=== PATIENT | male | born 1955 | race Caucasian/White ===

== ENCOUNTER 2018-08-15 21:11 | Observation (INO) ==
[2018-08-15] MEDS ORDERED: Ketorolac 15 MG/ML VIAL IVP ONE (21:39)
--- NOTE | 2018-08-15 21:44 | Emergency Department Note ---
Disposition Clinical Impression: RLQ abdominal pain Disposition: Admitted As Inpatient Condition: Good Time of Disposition: 00:06 Abdominal Pain HPI - General Chief Complaint: ED Abdominal Pain Stated Complaint: abd pain/nausea Time Seen by Provider: 08/15/18 21:23 Source: patient Mode of arrival: ambulatory Limitations: no limitations Nursing Notes Reviewed: Yes Vital Signs Reviewed: Yes - History of Present Illness HPI Narrative: 62-year-old male otherwise healthy presents emergency department with abdominal pain. Approximately 8 hours prior to arrival patient reports feeling pain around the belly button. Describes as a ache that has now gradually moved to the right lower quadrant. No prior history of this. Some nausea. He has not taken anything for the pain. Gradually worsened. He ate some left over food prior to the onset of the pain. Denies any vomiting. Denies any chest pain or shortness of breath. No recent illness cough or congestion. Denies any urinary symptoms. History of prostate cancer with resection and radiation 8 years ago with completion 4 years ago. 4 years ago he also had a penile implant in denies any new issues. Denies any injury or trauma to the area. No other abdominal surgeries. Pt Subjective Complaint: abdominal pain - Related Data Allergies Allergy/AdvReac Type Severity Reaction Status Date / Time No Known Allergies Allergy Verified 08/15/18 22:13 All systems ED: reviewed and negative except as stated. Review of Systems: As Per HPI Constitutional: Denies: fever, chills ENT ED: Denies: congestion Cardiovascular: Denies: chest pain Respiratory: Denies: cough, dyspnea Gastrointestinal: Reports: abdominal pain, nausea. Denies: vomiting, diarrhea, melena, hematochezia Genitourinary: Denies: urgency, dysuria Musculoskeletal: Denies: back pain Integumentary: Denies: rash, abrasion Neurological: Denies: headache Abdominal Pain PMH - Past Medical History Medical history: Reports: no medical history Physical Exam - General Limitations: no limitations General appearance: alert, in distress (Appears uncomfortable) - Head Head exam: atraumatic, normocephalic, normal inspection - Eye Eye exam: Present: normal appearance, PERRL, EOMI. Absent: scleral icterus - ENT ENT exam: normal exam, normal oropharynx, mucous membranes moist - Neck Neck exam: Present: normal inspection, full ROM, trachea midline - Chest Chest inspection: Present: normal inspection, symmetric chest wall rise - Respiratory Respiratory exam: Present: normal lung sounds bilaterally - Cardiovascular Cardiovascular exam: Present: regular rate, normal rhythm, normal heart sounds - Abdominal Exam Abdominal exam: Present: soft, tenderness, normal bowel sounds, Rovsing's sign, tenderness at McBurney's Point. Absent: distention, guarding, rebound, rigidity , trauma, obturator sign Abdominal tenderness: Present: RLQ - Male exam: Present: other (penile implant). Absent: testicular tenderness - Extremities Exam Extremities exam: Present: normal inspection, full ROM, normal capillary refill. Absent: tenderness, pedal edema - Back Exam Back exam: Present: normal inspection, full ROM. Absent: tenderness, CVA tenderness (R), CVA tenderness (L) - Neurological Exam Neurological exam: Present: alert, oriented X3 - Psychiatric Psychiatric exam: Present: normal affect, normal mood - Skin Skin exam: Present: warm, dry, intact, normal color. Absent: rash, cyanosis, diaphoresis Course Course Narrative: Patient presents with right lower quadrant pain concerning for appendicitis. He has positive McBurney point. Will obtain labs images and toward all for pain at this time. - Reevaluation(s) Reevaluation #1: I personally reviewed the images which showed a dilated appendix but the radiologic interpretation was not definitive for acute appendicitis and possible early appendicitis. After additional pain medication patient feels more comfortable however on examination she continues to have pain and tenderness in the right lower quadrant. Will consult with her surgeon for possible serial examination versus surgery. Patients in agreement with this plan. - Consultations Consultation #1: Consulted with on-call surgeon Dr. Minaya regarding the patient's presentation and findings. The CT scan showed a dilated appendix concerning for acute appendicitis. Patient's pain did improve with medication however he continues to be tender in the right lower quadrant. Review of his labs did not show a leukocytosis it was 10.7. Patient is also afebrile. Dr. Minaya recommended discharge home with pain medication and follow-up in the morning. I did reiterate that patient had a clinical suspicion for acute appendicitis it was still recommended for him to be discharged home. Time: 23:35 Consultation #2: Discussed with the patient and will plan for admission and serial abdominal examinations. We consult with a surgeon who will see the patient on the floor in the morning. Will initiate empiric antibiotics Cipro and Flagyl. Spoke with on-call hospitalist kecia Natarajan to admit for abdominal pain concerning for appy with serial abdominal examinations. No further orders at this time Vital Signs Temperature 98.7 F 08/15/18 21:14 Pulse Rate 94 08/15/18 21:14 Respiratory Rate 20 08/15/18 21:14 Blood Pressure 112/68 08/15/18 21:14 O2 Sat by Pulse Oximetry 98 08/15/18 21:14 Temperature 98.7 F 08/15/18 22:13 Pulse Rate 77 08/15/18 23:49 Respiratory Rate 14 08/15/18 23:49 Blood Pressure 125/69 08/15/18 23:49 O2 Sat by Pulse Oximetry 98 08/15/18 23:49 Oxygen Delivery Oxygen Delivery Room Air Abdominal Pain - MDM Narrative Medical decision making narrative: Patient was discussed with my attending physician who agrees with ED management and final disposition. They independently evaluated the patient. Please refer to their attestation to this encounter for additional information. This note was generated by [employer] voice recognition software and as a result grammatical or spelling errors may occur using this program. - Medical Records Medical records reviewed: Yes I reviewed the patient's medical records. - Lab Data Lab results reviewed: Yes I reviewed the patient's lab results. Result diagrams: 08/15/18 21:53 08/15/18 21:53 Lab Results 08/15/18 08/15/18 08/15/18 Range/Units 21:53 21:53 22:04 WBC 10.7 (4.3-11.1) K/mcL RBC 3.53 L (4.19-5.50) M/mcL Hgb 12.9 (12.9-16.9) g/dL Hct 34.9 L (37.5-50.1) % MCV 98.9 (83.0-100.0) fL MCH 36.5 H (28.0-33.3) pg MCHC 37.0 H (31.6-35.5) g/dL RDW 13.0 (11.5-14.5) % Plt Count 193 (140-400) K/mcL MPV 9.2 L (9.4-12.4) fL Immature Gran % 0.4 (0-4) % Seg Neutrophils % 88.8 % Lymphocytes % 4.4 % Monocytes % 5.9 % Eosinophils % 0.0 % Basophils % 0.5 % Neutrophils # 9.5 H (1.6-8.9) K/mcL Lymphocytes # 0.5 L (0.6-4.6) K/mcL Monocytes # 0.6 (0.0-1.3) K/mcL Eosinophils # 0.0 (0.0-0.6) K/mcL Basophils # 0.1 (0.0-0.2) K/mcL Sodium 131 L (136-145) mEq/L Potassium 3.8 (3.5-5.1) mEq/L Chloride 98 (98-107) mEq/L Carbon Dioxide 23 (23-29) mEq/L BUN 11 (8-23) mg/dL Creatinine 0.61 L (0.70-1.30) mg/dL Est GFR ( Amer) > 60 (> 60) Est GFR (Non-Af Amer) > 60 (> 60) BUN/Creatinine Ratio 18 (6-26) Glucose 114 H (70-105) mg/dL Calculated Osmolality 272 L (280-300) Calcium 9.1 (8.6-10.3) mg/dL Total Bilirubin 0.9 (0.3-1.0) mg/dL Direct Bilirubin 0.2 (0.0-0.2) mg/dL Indirect Bilirubin 0.7 (0.0-1.2) mg/dL AST 23 (13-39) Units/L ALT 16 (7-52) Units/L Alkaline Phosphatase 32 L (34-104) Units/L Serum Total Protein 6.5 (6.4-8.9) g/dL Albumin 4.5 (3.5-5.7) g/dL Globulin 2.0 L (2.4-3.5) g/dL Albumin/Globulin Ratio 2.3 H (1.1-2.2) Lipase 4 L (11-82) Units/L Urine Color Dark Yellow (Yellow) Urine Clarity Cloudy A (Clear) Urine pH 5.5 (5.0-8.0) pH Units Ur Specific [place] 1.015 (1.010-1.025) Urine Protein Negative (Neg-Trace) mg/dL Urine Glucose (UA) Normal (Normal) mg/dL Urine Ketones 15 H (Negative) mg/dL Urine Blood Negative (Negative) Urine Nitrite Negative (Negative) Urine Bilirubin Small H (Negative) Urine Urobilinogen Normal (Normal) mg/dL Ur Leukocyte Esterase Negative (Negative) Urine Microscopic RBC 0-3 (0-3) per hpf Urine Microscopic WBC 0-3 (0-3) per hpf Ur Squamous Epith Cells Many H (None-Few) per lpf Calcium Oxalate Crystal Present Urine Bacteria None Seen (None-Few) per hpf Hyaline Casts None Seen (None-Few) per lpf Ur Culture Indicated? NO (NO) - Radiology Data Radiology results reviewed: Yes I reviewed the patient's radiology results. Abdomen/Pelvis CT 08/15/18 21:30 IMPRESSION: Dilated tubular fluid-filled appendix with simple attenuation identified. Minimal regional inflammation. Differential considerations would include acute appendicitis, an appendiceal mucocele or mucinous cystadenoma. D/ / 08/15/2018 22:58:00 Adolph Bae / bethany Interpreting Provider: Adolph Bae
[2018-08-15 22:11] LABS: Basophils # 0.1 K/mcL (0.0-0.2); Basophils % 0.5 %; Hematocrit 34.9 % (37.5-50.1); Hemoglobin 12.9 g/dL (12.9-16.9); Immature Granulocytes % 0.4 % (0-4); Lymphocytes # 0.5 K/mcL (0.6-4.6); Lymphocytes % 4.4 %; Mean Corpuscular Hemoglobin 36.5 pg (28.0-33.3); Mean Corpuscular Volume 98.9 fL (83.0-100.0); Mean Platelet Volume 9.2 fL (9.4-12.4); Monocytes # 0.6 K/mcL (0.0-1.3); Monocytes % 5.9 %; Neutrophils # 9.5 K/mcL (1.6-8.9); Platelet Count 193 K/mcL (140-400); Red Blood Count 3.53 M/mcL (4.19-5.50); Segmented Neutrophils % 88.8 %
[2018-08-15 22:25] LABS: Alanine Aminotransferase 16 Units/L (7-52); Albumin 4.5 g/dL (3.5-5.7); Albumin/Globulin Ratio 2.3 (1.1-2.2); Alkaline Phosphatase 32 Units/L (34-104); Aspartate Amino Transferase 23 Units/L (13-39); BUN/Creatinine Ratio 18 (6-26); Bilirubin,Direct 0.2 mg/dL (0.0-0.2); Bilirubin,Indirect 0.7 mg/dL (0.0-1.2); Bilirubin,Total 0.9 mg/dL (0.3-1.0); Blood Urea Nitrogen 11 mg/dL (8-23); Calcium 9.1 mg/dL (8.6-10.3); Carbon Dioxide 23 mEq/L (23-29); Chloride 98 mEq/L (98-107); Glucose 114 mg/dL (70-105); Lipase 4 Units/L (11-82); Osmolality,Calculated 272 (280-300); Potassium 3.8 mEq/L (3.5-5.1); Sodium 131 mEq/L (136-145); Total Protein 6.5 g/dL (6.4-8.9); eGFR For Non-African Americans > 60 (> 60)
[2018-08-15] MEDS ORDERED: *HR* FentaNYL (PF) 100 MCG/2 ML VIAL IVP ONE (22:25)
[2018-08-15 22:53] LABS: Bilirubin,Urine Small (Negative); Blood,Urine Negative (Negative); Clarity,Urine Cloudy (Clear); Color,Urine Dark Yellow (Yellow); Glucose,Urine (UA) Normal (Normal); Ketones,Urine 15 mg/dL (Negative); Leukocyte Esterase,Urine Negative (Negative); Nitrite,Urine Negative (Negative); PH,Urine 5.5 pH Units (5.0-8.0); Protein,Urine Negative (Neg-Trace); Specific Gravity,Urine 1.015 (1.010-1.025); Urobilinogen,Urine Normal (Normal)
[2018-08-15 22:56] LABS: Bacteria,Urine None Seen per hpf (None-Few); Hyaline Casts,Urine None Seen per lpf (None-Few); RBC,Urine 0-3 per hpf (0-3); Squamous Epithelial Cell,Urine Many per lpf (None-Few); WBC,Urine 0-3 per hpf (0-3)
[2018-08-15 23:10] LABS: Calcium Oxalate Crystals,Urine Present
--- NOTE | 2018-08-15 23:30 | Emergency Department Note ---
Disposition Clinical Impression: RLQ abdominal pain Disposition: Still a Patient Referrals: Chon Muller [Other] Forms: ED Satisfaction Letter, Work/School Release General Adult HPI - General Chief complaint: ED Abdominal Pain Stated complaint: abd pain/nausea Time Seen by Provider: 08/15/18 21:23 Source: patient Mode of arrival: ambulatory Limitations: no limitations - History of Present Illness Pain Scale: 8 - Related Data Allergies Allergy/AdvReac Type Severity Reaction Status Date / Time No Known Allergies Allergy Verified 08/15/18 22:13 Constitutional: Denies: fever, chills ENT ED: Denies: congestion Cardiovascular: Denies: chest pain Respiratory: Denies: cough, dyspnea Gastrointestinal: Reports: abdominal pain, nausea. Denies: vomiting, diarrhea, melena, hematochezia Genitourinary: Denies: urgency, dysuria Musculoskeletal: Denies: back pain Integumentary: Denies: rash, abrasion Neurological: Denies: headache Past Medical History - Past Medical History Medical history: Reports: cancer Psychiatric history: Reports: no psych history - Social History Smoking Status: Never smoker Alcohol use: Reports: occasionally Drug use: Reports: none Physical Exam - General Limitations: no limitations General appearance: alert, in distress Course - Consultations Consultation #1: re-discussed case with Dr. Minaya and re-iterated my concerns for acute appendicitis and the clinical presentation concerning for appendicitis. Zonia pain is controlled currently but is concerned that he may not be able to control the pain at home. I have discussed that we will not be able to send zonia peterson and that he can evalaute zonia at bedside, admit him to surgical service, or we can at the least admit to medicine with his consult for RLQ pain for serial abdominal exams. Dr. Minaya would like patient admitted to medicine with consutl to his service. Time: 00:08 Vital Signs Temperature 98.7 F 08/15/18 21:14 Pulse Rate 94 08/15/18 21:14 Respiratory Rate 20 08/15/18 21:14 Blood Pressure 112/68 08/15/18 21:14 O2 Sat by Pulse Oximetry 98 08/15/18 21:14 Temperature 98.7 F 08/15/18 22:13 Pulse Rate 77 08/15/18 23:49 Respiratory Rate 14 08/15/18 23:49 Blood Pressure 125/69 08/15/18 23:49 O2 Sat by Pulse Oximetry 98 08/15/18 23:49 Oxygen Delivery Oxygen Delivery Room Air Medical Decision Making - Lab Data Result diagrams: 08/15/18 21:53 08/15/18 21:53 Lab Results 08/15/18 08/15/18 08/15/18 Range/Units 21:53 21:53 22:04 WBC 10.7 (4.3-11.1) K/mcL RBC 3.53 L (4.19-5.50) M/mcL Hgb 12.9 (12.9-16.9) g/dL Hct 34.9 L (37.5-50.1) % MCV 98.9 (83.0-100.0) fL MCH 36.5 H (28.0-33.3) pg MCHC 37.0 H (31.6-35.5) g/dL RDW 13.0 (11.5-14.5) % Plt Count 193 (140-400) K/mcL MPV 9.2 L (9.4-12.4) fL Immature Gran % 0.4 (0-4) % Seg Neutrophils % 88.8 % Lymphocytes % 4.4 % Monocytes % 5.9 % Eosinophils % 0.0 % Basophils % 0.5 % Neutrophils # 9.5 H (1.6-8.9) K/mcL Lymphocytes # 0.5 L (0.6-4.6) K/mcL Monocytes # 0.6 (0.0-1.3) K/mcL Eosinophils # 0.0 (0.0-0.6) K/mcL Basophils # 0.1 (0.0-0.2) K/mcL Sodium 131 L (136-145) mEq/L Potassium 3.8 (3.5-5.1) mEq/L Chloride 98 (98-107) mEq/L Carbon Dioxide 23 (23-29) mEq/L BUN 11 (8-23) mg/dL Creatinine 0.61 L (0.70-1.30) mg/dL Est GFR ( Amer) > 60 (> 60) Est GFR (Non-Af Amer) > 60 (> 60) BUN/Creatinine Ratio 18 (6-26) Glucose 114 H (70-105) mg/dL Calculated Osmolality 272 L (280-300) Calcium 9.1 (8.6-10.3) mg/dL Total Bilirubin 0.9 (0.3-1.0) mg/dL Direct Bilirubin 0.2 (0.0-0.2) mg/dL Indirect Bilirubin 0.7 (0.0-1.2) mg/dL AST 23 (13-39) Units/L ALT 16 (7-52) Units/L Alkaline Phosphatase 32 L (34-104) Units/L Serum Total Protein 6.5 (6.4-8.9) g/dL Albumin 4.5 (3.5-5.7) g/dL Globulin 2.0 L (2.4-3.5) g/dL Albumin/Globulin Ratio 2.3 H (1.1-2.2) Lipase 4 L (11-82) Units/L Urine Color Dark Yellow (Yellow) Urine Clarity Cloudy A (Clear) Urine pH 5.5 (5.0-8.0) pH Units Ur Specific [place] 1.015 (1.010-1.025) Urine Protein Negative (Neg-Trace) mg/dL Urine Glucose (UA) Normal (Normal) mg/dL Urine Ketones 15 H (Negative) mg/dL Urine Blood Negative (Negative) Urine Nitrite Negative (Negative) Urine Bilirubin Small H (Negative) Urine Urobilinogen Normal (Normal) mg/dL Ur Leukocyte Esterase Negative (Negative) Urine Microscopic RBC 0-3 (0-3) per hpf Urine Microscopic WBC 0-3 (0-3) per hpf Ur Squamous Epith Cells Many H (None-Few) per lpf Calcium Oxalate Crystal Present Urine Bacteria None Seen (None-Few) per hpf Hyaline Casts None Seen (None-Few) per lpf Ur Culture Indicated? NO (NO) Attestation Statement - Attestation Attestation: I examined this patient and my medical decision-making was reviewed with the Resident Physician. I agree with the documented findings, disposition and treatment plan as described except to the extent set forth below. 62 year old male presents to the ED with complaints of RLQ pain that started in the umbilical area and is now radiating into the RLQ with positive McBurneys point. Patient states that he is concerned for appendicitis and has no previous history of abdoinal surgeries. He also is experincing decreased and suppressed appetite and nausea with vomitting or fever. ABCT is concerning for early appendicitis and we will consult with wayne. Patient pain controlled with fentanyl.
[2018-08-16] MEDS ORDERED: 0.9 % Sodium Chloride 1,000 ML IVC SCH (00:15)
[2018-08-16] MEDS ORDERED: *HR* FentaNYL (PF) 100 MCG/2 ML VIAL IVP ONE ×2 (00:42→01:46)
[2018-08-16] MEDS ORDERED: MetroNIDAZOLE 500 MG/100 ML 500 MG/100 ML BAG IVPB ONE (01:01)
[2018-08-16] MEDS ORDERED: Ketorolac 15 MG/ML VIAL IVP PRN (02:39)
[2018-08-16] MEDS ORDERED: Naloxone 0.4 MG/ML INJ IVP PRN (02:39)
[2018-08-16] MEDS ORDERED: *HR* FentaNYL (PF) 100 MCG/2 ML VIAL IVP PRN (02:39)
[2018-08-16] MEDS ORDERED: 0.9 % Sodium Chloride w KCl 20 MEQ/1,000 ML MLS IVC SCH (02:45)
--- NOTE | 2018-08-16 03:01 | Internal Med History&Physical ---
Date of Encounter: 08/16/18 Time of Encounter: 02:30 Internal Medicine - H&P: HPI Chief complaint: abdominal pain Admitted From: Emergency Dept Plans for Post Hospital Care: Home History of present illness: Mr. Epps is a 62 year old male who presents to the ER tonight with gradual onset right lower quadrant abdominal pain at about 1 PM on 08/15/2018. Symptoms started as a dull achy pain that over the next hour progressed to significant pain, causing him to double over. He therefore came to ER where he was seen and evaluated. CT imaging was obtained which was concerning for possible appendicitis. His labs are unremarkable and he had no fevers. Phone consultation was made with general surgery who recommended discharge with close follow-up versus admission to hospitalist service and surgical consultation. Patient was therefore admitted to hospitalist service with a surgery consultation. Upon my assessment of the patient in the ER, he reiterates the above history. I spoke with Dr. Dotson about this patient regarding clinical concerns of possible appendicitis. Presently, his pain is well controlled, and he does not have a surgical abdomen on exam. I discussed with him the plan including IV fluids, pain control, nothing by mouth status, and surgical consultation. Additionally, I requested patient be started on antibiotics in the ER to cover GI arabella. We will request surgical consultation from Dr. Minaya, and I informed patient he will need serial abdominal exams throughout the day. I also informed him that if his pain becomes unbearable and/or more intense, I requested to be notified by him and/or his nurse. Patient voiced understanding and agreement with my plan. He denies any fevers, nausea, vomiting, chills, or diarrhea. His main and only complaint was the right lower quadrant abdominal pain which he first noticed around 1 PM yesterday. His pain is much better controlled now and he is resting in bed comfortably. He denies any dysuria, hematuria, flank pain, or urinary urgency. Past Med Surg Social Fam HX - Past Medical History Attestation: Yes The following information was validated with the patient. Source: patient Medical history: no medical history Additional medical history: prostate cancer Psychiatric history: no psych history - Past Surgical History Additional surgical history: prostate cancer, prostatectomy - Social History Smoking Status: Never smoker Alcohol use: occasionally Drug use: none Current living situation: Home, With Family Activity Level: Independent ambulation, Very active Recent Out of Country Travel Within the Last 8 Weeks: No - Family History Mother Living Status: Hx Family GI Disorders: No Father Living Status: Hx Family GI Disorders: No Hx Family Genitourinary Disorders: Yes (prostate cancer) Internal Medicine - H&P: Meds 3 Allergy/AdvReac Type Severity Reaction Status Date / Time No Known Allergies Allergy Verified 08/15/18 22:13 - Constitutional Constitutional: no chills, no fever(s), no night sweats - EENT Eyes: no blurry vision, no change in vision Ears: no ear pain, no tinnitus Nose, mouth and throat: no nasal congestion, no sore throat - Cardiovascular Cardiovascular ROS IM: no chest pain, no dyspnea, no dyspnea on exertion - Respiratory Respiratory: no cough, no chest congestion, no excessive phlegm production - Gastrointestinal Gastrointestinal: abdominal pain (suprapubic to RLQ), no diarrhea, no hematemesis, no hematochezia, no melena, no nausea, no vomiting - Genitourinary Genitourinary ROS male: no dysuria, no flank pain, no hematuria - Musculoskeletal Musculoskeletal ROS IM: no arthralgias, no back pain - Integumentary Integumentary IM: no rash, no jaundice - Neurological Neurological ROS: no dizziness, no focal weakness, no frequent falls, no headache(s) - Psychiatric Psychiatric: no anxiety, no depression - Endocrine Endocrine IM: no polydipsia, no polyuria - Allergic/Immunologic Allergic/Immunologic: no GI upset with certain foods - Constitutional Vitals: Temp Pulse Resp BP Pulse Ox 98.4 F 78 16 132/80 97 08/16/18 02:48 08/16/18 02:48 08/16/18 02:48 08/16/18 02:48 08/16/18 02:48 General appearance: Present: cooperative, A&O X 3, pleasant, no acute distress, answers questions appropriately Exam: comfortable, resting in bed, no distress at this time - Head Head exam: Present: normal inspection - Eye Eye exam: Present: EOMI, PERRL. Absent: scleral icterus Pupils: Present: normal accommodation - ENT ENT exam: Present: mucous membranes dry, normal exam, normal oropharynx - Neck Neck exam general surgery: Present: full ROM, supple. Absent: tenderness, nuchal rigidity, thyromegaly - Respiratory Respiratory exam: Present: CTAB. Absent: rales, respiratory distress, rhonchi, tachypnea - Cardiovascular Cardiovascular exam: Present: RRR, +S1, +S2. Absent: diastolic murmur, systolic murmur - GI/Abdominal GI/Abdominal exam: Present: normal bowel sounds, soft, tenderness (RLQ), no peritoneal signs. Absent: distended, guarding, hepatomegaly, mass, rebound - Extremities Exam Extremities exam: Present: full ROM, warm, radial pulses palpable and symmetrical. Absent: calf tenderness, joint swelling, pedal edema, tenderness - Back Exam Back exam: Absent: CVA tenderness (L), CVA tenderness (R) - Neurological Exam Neurological exam: Present: alert, CN II-XII intact, oriented X3, no focal deficits - Psychiatric Psychiatric exam: Present: normal affect, normal mood - Skin Skin exam: Present: dry, intact, warm Internal Med - H&P Results - Labs CBC & Chem 7: 08/15/18 21:53 08/15/18 21:53 Labs: U/A reviewed -- does not indicate UTI - Diagnostic Studies CT scan - abdomen Additional comments: Report reviewed -- possible appendicitis, appendiceal muocele, or mucinous cystadenoma - Assessment and plan (1) RLQ abdominal pain Current Visit: Yes Status: Acute Assessment and plan: 1. Will keep npo, consult surgery (Dr. Minaya), treat with IV Fentanyl and/or Toradol for pain, and hydrate with IVF. 2. Blood cultures done in ER per my request. 3. IV Flagyl and Cipro to cover GI arabella. 4. Serial abdominal exams. (2) DVT prophylaxis Current Visit: Yes Status: Acute Assessment and plan: 1. Heparin SQ.
[2018-08-16] MEDS ORDERED: Ondansetron 4 MG/2 ML VIAL IVP PRN (03:28)
--- NOTE | 2018-08-16 03:51 | Event Note ---
Date of Encounter: 08/16/18 Time of Encounter: 03:15 Called by RN regarding worsening abdominal pain upon arrival from ER and after transitioning to hospital bed from ER bed/cot. I came by to assess patient. He is having some more pain and some nausea. He has no guarding or rebound tenderness but he is wincing in pain with percussion of abdomen. I ordered an extra dose of Fentanyl and PRN Zofran. I then called and spoke with Dr. Minaya informing him of the above and requesting that he see him first thing this morning upon arrival to hospital as I'm concerned he'll likely need surgery. He agreed with me and will see him first thing this morning.
[2018-08-16] MEDS ORDERED: *HR* Heparin 5,000 UNIT/ML VIAL SQ SCH (06:00)
--- NOTE | 2018-08-16 06:16 | Anesthesia Evaluation PreOp ---
Date of Encounter: 08/16/18 Time of Encounter: 06:14 - Past History Planned Operation: lap appy Cardiac History: Denies any Significant Hx Pulmonary History: Denies Any Significant HX HOT WORT SETTLER History: Denies Any Significant HX Other Medical History: Other (prostate ca) Anesthesia History: No Prior Anesthetic Complications, Past Anesthesia ( prostactectomy) Alcohol Use: occasionally Drug use: none Medications and Allergies 3 Allergy/AdvReac Type Severity Reaction Status Date / Time No Known Allergies Allergy Verified 08/15/18 22:13 - Meds/Allergy Pre-op Review Medications Reviewed: Yes Allergies Reviewed: Yes Beta Blockers on Current Med List: No Anesthesia Results - Labs 08/16/18 06:08 08/16/18 06:08 - Imaging EKG: report reviewed (NSR) Anesthesia Exam Vital Signs/O2 Sat, Most Current Temp Pulse Resp BP Pulse Ox 98.4 F 78 16 132/80 97 08/16/18 02:48 08/16/18 02:48 08/16/18 02:48 08/16/18 02:48 08/16/18 02:48 Weight: 74kg - HEENT Pupil (Motor): Pupils equal, EOMI Mallampati: II Teeth: Normal Oral Opening: Greater than 3 - HOT WORT SETTLER LOC: Oriented HOT WORT SETTLER Motor: Normal RUE, Normal LUE, Normal RLE, Normal LLE, Normal Face HOT WORT SETTLER Sensory: Normal: RUE, LUE, RLE, LLE, Face - Cardiac Rhythm: Regular - Pulmonary Breath Sounds: bilateral Clear Respiratory Effort: Symmetrical Anesthesia Assess/Plan ASA Score: 2 Modified Israel Scale for Level of Consciousness: Cooperative, oriented, and tranquil Anesthetic Plan: General Monitoring Plan: Standard Monitors Recovery Plan: PACU
[2018-08-16 06:19] LABS: Basophils % 0.2 %; Hemoglobin 12.5 g/dL (12.9-16.9); Immature Granulocytes % 0.2 % (0-4); Lymphocytes # 0.3 K/mcL (0.6-4.6); Lymphocytes % 3.2 %; Mean Corpuscular HGB Conc 36.8 g/dL (31.6-35.5); Mean Corpuscular Hemoglobin 36.8 pg (28.0-33.3); Mean Platelet Volume 9.2 fL (9.4-12.4); Monocytes # 0.5 K/mcL (0.0-1.3); Neutrophils # 7.8 K/mcL (1.6-8.9); Platelet Count 165 K/mcL (140-400); Red Cell Distribution Width 12.8 % (11.5-14.5); Segmented Neutrophils % 90.4 %
[2018-08-16] MEDS ORDERED: Lidocaine -MPF 2% 2 ML VIAL ONE (06:20)
[2018-08-16] MEDS ORDERED: *HR* FentaNYL (PF) 100 MCG/2 ML VIAL ONE (06:20)
[2018-08-16] MEDS ORDERED: *HR* Succinylcholine 200 MG/10 ML VIAL IVP ONE (06:20)
[2018-08-16] MEDS ORDERED: *HR* Rocuronium Bromide 50 MG/5 ML VIAL ONE (06:20)
[2018-08-16] MEDS ORDERED: *HR* Propofol 200 MG/20 ML VIAL IVP ONE (06:20)
[2018-08-16] MEDS ORDERED: Lidocaine -MPF 4% 5 ML AMPUL ONE (06:26)
[2018-08-16 06:27] LABS: Activated Partial Thrombo Time 27.6 Seconds (26.0-36.0)
[2018-08-16 06:46] LABS: Alanine Aminotransferase 14 Units/L (7-52); Albumin 4.2 g/dL (3.5-5.7); Albumin/Globulin Ratio 2.3 (1.1-2.2); Alkaline Phosphatase 32 Units/L (34-104); Aspartate Amino Transferase 19 Units/L (13-39); BUN/Creatinine Ratio 18 (6-26); Bilirubin,Total 0.9 mg/dL (0.3-1.0); Blood Urea Nitrogen 10 mg/dL (8-23); Calcium 8.6 mg/dL (8.6-10.3); Carbon Dioxide 21 mEq/L (23-29); Chloride 98 mEq/L (98-107); Globulin 1.8 g/dL (2.4-3.5); Glucose 130 mg/dL (70-105); Magnesium 1.8 mg/dL (1.6-2.6); Osmolality,Calculated 271 (280-300); Potassium 4.4 mEq/L (3.5-5.1); Sodium 130 mEq/L (136-145); eGFR For Non-African Americans > 60 (> 60)
[2018-08-16] MEDS ORDERED: Neostigmine Methylsulfate 3 MG/3 ML SYRINGE ONE (07:24)
[2018-08-16] MEDS ORDERED: *HR* OxyCODONE Immed Rel 5 MG TABLET PO PRN (07:43)
[2018-08-16] MEDS ORDERED: *HR* Promethazine 25 MG/ML VIAL IVP PRN (07:43)
[2018-08-16] MEDS ORDERED: *HR* Labetalol 20 MG/4 ML SYRINGE IVP PRN (07:43)
[2018-08-16] MEDS ORDERED: MetroNIDAZOLE 500 MG/100 ML 500 MG/100 ML BAG IVPB SCH (08:00)
--- NOTE | 2018-08-16 08:13 | Anesthesia Evaluation Post Op ---
Date of Encounter: 08/16/18 Time of Encounter: 08:13 - Vital Signs Vital Signs: Vital Signs/O2 Sat, Most Current Temp Pulse Resp BP Pulse Ox 98.0 F 76 16 108/58 99 08/16/18 07:48 08/16/18 08:08 08/16/18 08:08 08/16/18 08:08 08/16/18 08:08 - Lungs Lungs: Clear Ascult./Percussion - Airway Airway: Non-obstructed - Cardiovascular Regular Rate - Mental Status Mental Status: Alert & Oriented, Answers Appropriately - Pain Pain Scale: 0 Pain Scale used: Numeric (1 - 10) - Nausea Vomiting Nausea Vomiting: Not Present - Hydration Hydration: NPO, Has not voided - Discharge PostOp Status: Transfer Patient to floor
--- NOTE | 2018-08-16 09:16 | Operative Note ---
Date of procedure: 08/16/18 Pre-op diagnosis: Right lower quadrant abdominal pain Post-op diagnosis: same Procedure: Laparoscopic appendectomy Anesthesia: GETA Surgeon: Scott Minaya Was there an medical billing assistant present: Yes Shotblast Operator: Nellie Maldonado Estimated blood loss (cc): 5 Specimen: Appendix Condition: stable Disposition: same day Procedure in Detail: After informed consent, patient was taken the operating room placed in the supine position. After adequate sedation anesthesia the abdomen was prepped and draped. 2 towel clips are placed the umbilicus and a fresh needle was inserted into the abdomen. A pneumoperitoneum was created. A 12 mm cannula was placed at the level of the umbilicus. 2 additional 5 mm cannulas were placed in the left lower quadrant. The appendix was identified and found to be enlarged likely due to a mucocele. There is minimal to no exudate around the appendix or the mesentery. It was easily dissected free from the base of the cecum. A 45 mm stapling device was used to staple the base of the appendix. The vasculature was taken with the same stapler. Once he appendix was removed was placed in an Endobag and removed through the umbilicus. The 12 mm cannula site was closed with an 0 Vicryl suture and the skin incisions were closed with 4-0 Vicryl suture and Dermabond. He tolerated the procedure well.
[2018-08-16 11:46] VITALS: BP 144/75
--- NOTE | 2018-08-16 12:04 | Discharge Summary ---
- NOTES TO OUTPATIENT PROVIDER Notes to Outpatient Provider: - Follow-up BMP in 3-5 days. - Follow-up with primary care after BMP taken in case hyponatremia workup is needed. - Follow- up BP, SBP ran in 140s, but could be pain related. Orders not resulted at time of discharge: Pending orders 08/16/18 07:36 Surgical Pathology [PTH] Routine Date of Encounter: 08/16/18 Time of Encounter: 12:01 - Discharge Diagnosis (1) Acute appendicitis Priority: Primary Status: Acute Qualifiers: Acute appendicitis type: unspecified acute appendicitis type Qualified Code (s): K35.80 - Unspecified acute appendicitis (2) DVT prophylaxis Priority: Secondary Status: Acute Assessment and Plan: 1. Heparin SQ. Hospital course: Mr. Epps is a 62 year old male who presents to the ER tonight with gradual onset right lower quadrant abdominal pain at about 1 PM on 08/15/2018. Symptoms started as a dull achy pain that over the next hour progressed to significant pain, causing him to double over. He therefore came to ER where he was seen and evaluated. CT imaging was obtained which was concerning for possible appendicitis. His labs are unremarkable and he had no fevers. Phone consultation was made with general surgery who recommended discharge with close follow-up versus admission to hospitalist service and surgical consultation. Patient was therefore admitted to hospitalist service with a surgery consultation. He was given IV fluids, pain control and made NPO. He was started on Cipro/Flagyl. Initially conservative measures were planned but his abdominal pain worsened. Dr. Minaya from Surgery evaluated the patient, and pt underwent laparoscopic appendectomy on 08/16, same day as admission. He tolerated procedure without issue. Patient requests to leave. He is afebrile, with no leukocytosis and he denies and abdominal pain, n/v. Serum sodium was low at 130-131 and so I advised he follows-up with primary care physician about this after obtaining a followup BMP in 3-5 days. This could be related to acute illness from appendicitis. He was discharged home in stable condition. - Time Spent with Patient Total time spent providing and/or coordinating discharge services: - Discharge Medications Home Medications: No Known Home Drugs 08/16/18 [History] Allergies/Adverse Reactions: 3 Allergy/AdvReac Type Severity Reaction Status Date / Time No Known Allergies Allergy Verified 08/15/18 22:13 Date of admission: 08/16/18 01:14 Primary care physician: Chon Muller Consults: 08/16/18 02:44 Consult to Physician [CONS] Routine Consulting Provider: Scott Minaya Reason for Consult: RLQ pain Call Completed: Yes Discharging clinician: Michelet Ramsey - Constitutional Vitals: Temp Pulse Resp BP Pulse Ox 98.7 F 75 16 144/75 98 08/16/18 10:39 08/16/18 11:30 08/16/18 11:30 08/16/18 11:30 08/16/18 11:30 General appearance: Present: cooperative, A&O X 3, pleasant, no acute distress, answers questions appropriately Exam: NAD - Head Head exam: Present: atraumatic, normocephalic - Eye Eye exam: Present: PERRL, conjuntiva pink, sclera anicteric Pupils: Present: PERRL - Neck Neck exam general surgery: Present: supple, trachea midline. Absent: lymphadenopathy - Respiratory Respiratory exam: Present: CTAB. Absent: accessory muscle use, rales, rhonchi, wheezes - Cardiovascular Cardiovascular exam: Present: RRR, +S1, +S2. Absent: diastolic murmur, gallop, rubs, systolic murmur - GI/Abdominal GI/Abdominal exam: Present: normal bowel sounds, soft, tenderness, no peritoneal signs. Absent: distended, rebound, rigid - Extremities Exam Extremities exam: Present: warm, radial pulses palpable and symmetrical. Absent : calf tenderness, cyanotic, pedal edema - Neurological Exam Neurological exam: Present: CN II-XII intact, oriented X3, no focal deficits. Absent: pronater drift, facial droop, speech deficit - Skin Skin exam: Present: dry, intact - Patient Status Disposition: Home, Self-Care Condition: Good Functional capacity at discharge: independent ambulation Overall status at discharge: patient is progressing back to baseline - Discharge Instructions Instructions: Laparoscopic Appendectomy (DC) - Diet and Activity Activity: increase activity as tolerated Diet: advance to your usual diet
--- NOTE | 2018-08-16 14:58 | Electrocardiograph Report ---
[place] [id number] Test Date: 2018-08-16 Pat Name: Shivam Epps Department: 114 Room: [facility] Gender: M Rn Advanced: : 1955 Requested By: Emir Villalta Order Number: [id number] Reading MD: Bruna Ha Measurements Intervals [place] Rate: 65 P: 43 [place]: 180 QRS: 29 QRSD: 98 T: 25 QT: 378 QTc: 390 Interpretive Statements SINUS RHYTHM Electronically Signed On 08-16-2018 14:57:03 EDT by Bruna Ha
== END 2018-08-16 12:50 | disposition home or self-care (01) ==
LOC: EMEROOARM 21:11 → 3NENU 21:11
PROVIDERS: ADMIT Pediatrics; ATTEND Pediatrics